=== PATIENT | female | born 1975 ===

== ENCOUNTER 2022-12-31 15:48 | Emergency (ER) | payer BC ==
[2022-12-31 16:15] VITALS: BP 125/75; PULSE 100; O2SAT 100
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
== END 2022-12-31 18:02 | disposition home or self-care (01) ==
LOC: ED 15:48
DX: S06.0X0A Concussion without loss of consciousness, initial encounter (principal); S16.1XXA Strain of muscle, fascia and tendon at neck level, initial encounter; S39.012A Strain of muscle, fascia and tendon of lower back, initial encounter; V49.40XA Driver injured in collision with unspecified motor vehicles in traffic accident, initial encounter
CPT/HCPCS: 71046; 72050; 99282